=== PATIENT | female | born 1955 | race African-American/Black ===

== ENCOUNTER → 2017-01-08 | Outpatient (CLI) | payer OTHER ==
[2017-01-08 17:20] LABS: Basophils # (auto) 0 uL; Basophils % (auto) 0.9 % (0.0-2.0); DEFINITIVE VIEW TRANSMISSION; Eosinophils # (auto) 0 uL; Eosinophils % (auto) 1.2 % (0.0-7.0); Hematocrit 42.4 % (36.0-46.0); Hemoglobin 13.7 g/dL (12.2-16.2); Lymphocytes # (auto) 1.5 uL; Lymphocytes % (auto) 42.3 % (10.0-50.0); Mean Corpuscular Hemoglobin 23.3 pg (28.0-32.0); Mean Corpuscular Hgb Conc. 32.4 g/dL (32.0-36.0); Mean Corpuscular Volume 71.9 fL (80.0-100.0); Mean Platelet Volume 11.6 fL (7.4-10.4); Monocytes # (auto) 0.3 uL; Monocytes % (auto) 7.6 % (0.0-12.0); Neutrophils # (auto) 1.7 uL; Platelet Count (auto) 274 10^3/uL (140-450); Red Cell Distribution Width 18.5 % (11.6-16.0); SUSPECT VIEW TRANSMISSION; White Blood Cell 3.5 10^3/uL (4.4-10.8)
[2017-01-08 17:31] LABS: Platelet Estimate Adequate
[2017-01-08 17:35] LABS: Giant Platelets Few; Hypochromia Moderate
[2017-01-08 17:36] LABS: Ovalocytes FEW
[2017-01-08 17:41] LABS: BUN/Creatinine Ratio 12.3; Calcium 8.9 mg/dL (8.5-10.1); Potassium 3.5 mmol/L (3.5-5.1)
== END | disposition home or self-care (01) ==
LOC: LAB 16:56
PROVIDERS: ATTEND Physician Assistant
DX: L76.12 Accidental puncture and laceration of skin and subcutaneous tissue during other procedure (principal); Z68.31 Body mass index [BMI] 31.0-31.9, adult
CPT/HCPCS: 36415; 80048; 80074; 85025; 86703